=== PATIENT | female | born 1980 | race Two or more races ===

== ENCOUNTER → 2017-12-22 | Outpatient (CLI) | payer BC, MEDICAID | LOC: CIMAGING 13:13 → EDSTATUS 13:18 | PROVIDERS: ATTEND Family Medicine | DX: M51.36 Other intervertebral disc degeneration, lumbar region (principal); M43.16 Spondylolisthesis, lumbar region; E55.9 Vitamin D deficiency, unspecified | CPT/HCPCS: 72100-PO ==

== ENCOUNTER 2018-11-01 10:47 | Emergency (ER) | payer OTHER ==
[2018-11-01 10:58] VITALS: BP 130/90
--- NOTE | 2018-11-01 11:15 | EDPHY ---
H & P Time Seen by Provider: 11/01/18 10:53 HPI/ROS: This patient presents with a one-week history of a cough associated with nasal congestion, moderate sore throat, and postnasal drip. She does not feel that her symptoms have worsened but are simply persistent for 1 week prompting her visit today. She describes the cough is a dry cough. Despite the sore throat she ranks as 5 to 8/10 intensity she still tolerating p.o. Intake. She does report mild odynophagia. She has no other associated symptoms except for myalgias the 1st 24 hr of the illness, None since. ROS: Constitutional: No fevers or chills. No significant fatigue. HEENT: No sinus pain. She does report moderate right ear pressure. Pulmonary: No dyspnea. No wheezing. No hemoptysis or sputum production. Cardiovascular: No chest pain. GI: No nausea vomiting or diarrhea. Integumentary: No skin rash 7 point review of symptoms is performed and otherwise negative with exception of pertinent positives and negatives listed in HPI and ROS Smoking Status: Never smoked Physical Exam: Physical Exam Vital signs are normal. General: No acute distress HEENT: Nose: Clear discharge bilaterally. No sinus tenderness to percussion. Ears: External canals and tympanic membranes are clear with no erythema. However the patient does have a clear effusion behind the TM on the right side. No effusion the left side. Oropharynx: No erythema or exudates. No dysphonia. No drooling or stridor. Eyes: Pupils equal and react to light. Extraocular motions are intact. Neck: Supple with no meningismus. No lymphadenopathy Lungs: Clear to auscultation bilaterally with no rales, rhonchi or wheeze. No respiratory distress. Cardiac: Regular rate and rhythm with no murmur gallop or rub Skin: No rash or pallor. Neuro: Alert with no focal deficits noted. Initial differential diagnosis: Viral URI with cough and serous otitis, doubt strep pharyngitis given lack of findings and prominent URI symptoms., doubt bronchitis given lack of any wheeze rhonchi or other findings. Doubt influenza given lack of significant fevers Constitutional: Initial Vital Signs Temperature (C) 36.4 C 11/01/18 10:56 Heart Rate 76 11/01/18 10:56 Respiratory Rate 18 11/01/18 10:56 Blood Pressure 130/90 H 11/01/18 10:56 O2 Sat (%) 96 11/01/18 10:56 O2 Delivery Mode Room Air Allergies/Adverse Reactions: No Known Allergies Allergy (Unverified 11/01/18 10:56) Home Medications: Medication Instructions Recorded None 06/21/09 Benzonatate [Tessalon Pearles (RX)] 100 - 200 mg PO TID PRN #20 cap 11/01/18 Fluticasone Nasal [Flonase Nasal 2 sprays NASAL DAILY #1 mdi 11/01/18 Mckinnon (RX)] MDM/Departure - [facility] ED Course/Re-evaluation: Discussion: Patient presents with normal vital signs and a benign physical exam with exception of serous otitis on the right side. Her findings are consistent with viral URI with cough I counseled regarding this. No clinical evidence to suggest lower respiratory infection, sepsis or other red flag findings. Will plan to treat her with humidifier, Flonase and Tessalon Perles with follow up with primary care physician for any ongoing symptoms that persist beyond the next 3-5 days. She understands need to return emergency department should she develop any significant worsening of her symptoms. - Depart Disposition: Home, Routine, Self-Care Clinical Impression: Viral URI with cough Serous otitis media Qualifiers: Chronicity: acute Laterality: right Recurrence: non-recurrent Qualified Code(s) : H65.01 - Acute serous otitis media, right ear Condition: Good Instructions: Upper Respiratory Infection (ED) Additional Instructions: Diagnoses: 1. Viral upper respiratory infection with cough 2. Serous otitis right ear Plan: Humidifier Continue Robitussin Add Flonase steroid nasal spray and uses for 7-10 days. Tessalon Perles if needed for cough prevents sleep You symptoms should be improving over the next 3-5 days with treatment plan. Return if he develops high fevers, shortness of breath or other concerns. Follow-up with primary care physician for any ongoing symptoms Prescriptions: Benzonatate [Tessalon Pearles (RX)] 100 - 200 mg PO TID PRN #20 cap PRN Reason: cough Fluticasone Nasal [Flonase Nasal Mckinnon (RX)] 2 sprays NASAL DAILY #1 mdi Referrals: Katelyn Marks, [Primary Care Provider] - As per Instructions
== END 2018-11-01 11:21 | disposition home or self-care (01) ==
LOC: CED 10:47
DX: J06.9 Acute upper respiratory infection, unspecified (principal); H65.01 Acute serous otitis media, right ear
CPT/HCPCS: 99283-ER